=== PATIENT | male | born 1985 | race Two or more races ===

== ENCOUNTER 2020-06-29 01:29 | Emergency (ER) | payer SELFPAY ==
[~2020-06-29] VITALS: Ht 180.3 cm; Wt 117.9 kg
[2020-06-29 01:35] VITALS: BP 132/70
== END 2020-06-29 02:06 | disposition home or self-care (01) ==
LOC: EDBD 01:29 → ER 01:29
DX: Z53.21 Procedure and treatment not carried out due to patient leaving prior to being seen by health care provider